=== PATIENT | male | born 2000 | race Caucasian/White ===

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

== ENCOUNTER 2020-09-26 16:04 | Emergency (ER) | payer BC ==
[~2020-09-26] VITALS: Ht 175.3 cm; Wt 95.0 kg
[2020-09-26 16:24] VITALS: BP 123/68
== END 2020-09-26 17:05 | disposition home or self-care (01) ==
LOC: ER 16:05
DX: J02.9 Acute pharyngitis, unspecified (principal); R09.89 Other specified symptoms and signs involving the circulatory and respiratory systems; R11.2 Nausea with vomiting, unspecified; R19.7 Diarrhea, unspecified; R07.89 Other chest pain; Z20.828 Contact with and (suspected) exposure to other viral communicable diseases
CPT/HCPCS: 36415; 99282